=== PATIENT | female | born 1980 | race Caucasian/White ===

== ENCOUNTER 2017-10-14 14:36 | Emergency (ER) | payer SELFPAY ==
[2017-10-14] MEDS ORDERED: HYDROCODONE/APAP 5/325 MG TAB ONE (16:04)
--- NOTE | 2017-10-14 16:24 | RAD REPORT ---
EXAM DESCRIPTION: RAD - Hand Right 3 View - 10/14/2017 3:21 pm CLINICAL HISTORY: Right hand pain status post injury FINDINGS: No fracture or dislocation is seen.
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
[2017-10-14 18:43] VITALS: TEMP 98.4
[2017-10-14 18:44] VITALS: O2SAT 100
[2017-10-14 18:46] VITALS: BP 129/102
== END 2017-10-14 17:45 | disposition home or self-care (01) ==
LOC: ER 14:36
DX: S63.681A Other sprain of right thumb, initial encounter (principal); W22.09XA Striking against other stationary object, initial encounter; Y93.89 Activity, other specified; Y92.9 Unspecified place or not applicable; I10 Essential (primary) hypertension; F17.210 Nicotine dependence, cigarettes, uncomplicated
CPT/HCPCS: 99283